=== PATIENT | male | born 2000 | race African-American/Black ===

== ENCOUNTER 2020-02-15 16:47 | Emergency (ER) | payer OTHER ==
[~2020-02-15] VITALS: Ht 182.9 cm; Wt 95.0 kg
[2020-02-15 17:00] VITALS: BP 134/79
--- NOTE | 2020-02-15 17:24 | RAD ---
INDICATION: Reason: COUGH / Spl. Instructions: / History: COMPARISON: None. FINDINGS: Single view of chest obtained. No focal airspace consolidation. Cardiomediastinal contour unremarkable. No acute osseous abnormality. IMPRESSION: * No focal airspace consolidation or edema. Electronically signed by: Scout Sue MD (02/15/2020 5:21 PM) [id number]
[2020-02-15] MEDS ORDERED: AZIT250T PO (17:48)
[2020-02-15] MEDS ORDERED: BENZ100C PO (17:48)
[2020-02-15] MEDS ORDERED: PRED20TA PO (17:48)
--- NOTE | 2020-02-15 17:48 | PHYS DOC ---
General Adult EDM: Chief Complaint: COUGH HPI: HPI: Patient is a 19-year-old male who presented to ER today for evaluation of nonproductive cough since yesterday. Patient also had some nasal congestion mild sore throat. Patient denies any fever. Patient denies any trouble breathing. Patient denies being exposed to anybody who tested positive for COVID-19. Patient denies any abdominal pain, no nausea or vomiting. Review of Systems: Review of Systems: Constitutional: Denies fever or chills Eyes: Denies change in visual acuity HENT: Denies nasal congestion or sore throat Respiratory: POSITIVE FOR COUGH, Cardiovascular: Denies chest pain or edema GI: Denies abdominal pain, nausea, vomiting, bloody stools or diarrhea : Denies dysuria Musculoskeletal: Denies back pain or joint pain Integument: Denies rash Neurologic: Denies headache, focal weakness or sensory changes Endocrine: Denies polyuria or polydipsia Lymphatic: Denies swollen glands Psychiatric: Denies depression or anxiety Heart Score: Risk Factors: Risk Factors: DM, Current or recent (<one month) smoker, HTN, HLP, family history of CAD, obesity. Risk Scores: Score 0 - 3: 2.5% MACE over next 6 weeks - Discharge Home Score 4 - 6: 20.3% MACE over next 6 weeks - Admit for Clinical Observation Score 7 - 10: 72.7% MACE over next 6 weeks - Early Invasive Strategies Allergies: Allergies: Allergies Coded Allergies Type Severity Reaction Last Updated Verified No Known Drug Allergies 02/15/20 No Physical Exam: PE: Constitutional: Well developed, well nourished, no acute distress, non-toxic andrews earance. [] HENT: Normocephalic, atraumatic, bilateral external ears normal, oropharynx moist, no oral exudates, nose normal. [] Eyes: PERRLA, EOMI, conjunctiva normal, no discharge. [] Neck: Normal range of motion, no tenderness, supple, no stridor. [] Cardiovascular:Heart rate regular rhythm, no murmur [] Lungs & Thorax: Bilateral breath sounds clear to auscultation [] Abdomen: Bowel sounds normal, soft, no tenderness, no masses, no pulsatile masses. [] Skin: Warm, dry, no erythema, no rash. [] Back: No tenderness, no CVA tenderness. [] Extremities: No tenderness, no cyanosis, no clubbing, ROM intact, no edema. [] Neurologic: Alert and oriented X 3, normal motor function, normal sensory function, no focal deficits noted. [] Psychologic: Affect normal, judgement normal, mood normal. [] EKG: EKG: [] Radiology/Procedures: Radiology/Procedures: [][address] [address] IMAGING REPORT Signed PATIENT: AL BACK ACCOUNT: [id number] : 2000 LOCATION: ER AGE: 19 SEX: M EXAM STATUS: PRE ER ORD. PHYSICIAN: MALINDA MINA DO REASON: COUGH PROCEDURE: CHEST AP ONLY INDICATION: Reason: COUGH / Spl. Instructions: / History: COMPARISON: None. FINDINGS: Single view of chest obtained. No focal airspace consolidation. Cardiomediastinal contour unremarkable. No acute osseous abnormality. IMPRESSION: * No focal airspace consolidation or edema. Electronically signed by: Enrico Hilton MD (02/15/2020 5:21 PM) [id number] DICTATED AND SIGNED BY: ENRICO HILTON MD DATE: 02/15/20 172 CC: MARLA GABRIEL; MALINDA MINA DO ~ Course & Med Decision Making: Course & Med Decision Making Pertinent Labs and Imaging studies reviewed. (See chart for details) Patient is a 19-year-old male who presented to ER today for evaluation of cough, nasal congestion for few day. Patient had no fever, oxygen saturation 100 percent ON room air. Chest x-ray did not show any acute problem. Patient will be discharged home with antibiotic for bronchitis. Dragon Disclaimer: Dragon Disclaimer: This electronic medical record was generated, in whole or in part, using a voice recognition dictation system. Departure Departure: Impression: Primary Impression: Acute bronchitis Disposition: 01 HOME/RESIDENCE PRIOR TO ADM Condition: STABLE Referrals: PCPMARLA (PCP) PLEASE FOLLOW UP WITH YOUR DOCTOR NEXT WEEK NEEDED Patient Instructions: Bronchitis Additional Instructions: Thank you for visiting our Emergency Department. We appreciate you trusting us with your care. If any additional problems come up don't hesitate to return to visit us. Please follow up with your primary care provider so they can plan additional care if needed and know about the problem that you had. If symptoms worsen come back to the Emergency Department. Any concerning symptoms that start such as chest pain, shortness of air, weakness or numbness on one side of the body, running high fevers or any other concerning symptoms return to the ER. Scripts Prednisone (PREDNISONE) 20 Mg Tablet 2 TAB PO DAILY for BRONCHITIS for 7 Days, #14 TAB Prov: MALINDA MINA DO 02/15/20 Benzonatate (TESSALON PERLE) 100 Mg Capsule 1 CAP PO TID PRN for COUGH, #21 CAP Prov: MALINDA MINA DO 02/15/20 Azithromycin (ZITHROMAX) 250 Mg Tablet 1 PKG PO UD for BRONCHITIS, #6 TAB Prov: MALINDA MINA DO 02/15/20 MALINDA MINA DO Feb 15, 2020 17:48
== END 2020-02-15 18:00 | disposition home or self-care (01) ==
LOC: ER 16:47
DX: J20.9 Acute bronchitis, unspecified (principal)
CPT/HCPCS: 71045; 99283